=== PATIENT | male | born 1965 | race Caucasian/White ===

== ENCOUNTER 2017-08-08 13:13 | Emergency (ER) | payer MEDICAID, OTHER ==
[~2017-08-08] VITALS: Ht 170.2 cm; Wt 80.0 kg
[2017-08-08 13:25] VITALS: Ht 170.2 cm; Wt 80.0 kg
[2017-08-08] MEDS ORDERED: ONDANSETRON (ODT) 4 MG TAB ODT STA (15:56)
[2017-08-08] MEDS ORDERED: HYDROCODONE/APAP (5/325) TAB PO ONE (16:00)
--- NOTE | 2017-08-08 16:33 | RADRPT ---
PROCEDURE: US Lower extremity Venous. CLINICAL INDICATION: Right leg edema , pain TECHNIQUE: Multiple sonographic images of the right lower extremity deep venous system was obtaine d utilizing grayscale, color-flow, compressive sonography and doppler imaging with augmentation. Th e images were reviewed on a PACS workstation. COMPARISON: None. FINDINGS: There is normal compressibility and flow within the right common femoral, femoral, posterior tibial, peroneal and popliteal veins. RPTAT: AA IMPRESSION: No sonographic evidence for deep venous thrombosis. .Shad Sharma MD, MD Date Time Electronically viewed and signed by .Shad Sharma MD, on 08/08/2017 16:33 .S/
--- NOTE | 2017-08-08 17:02 | RADRPT ---
PROCEDURE: XR Ankle. CLINICAL INDICATION: 51 years of age, male. Pain and swelling. TECHNIQUE: Three views of the right ankle. COMPARISON: None available. FINDINGS: No acute fracture or dislocation is identified. Normal alignment on this non-stressed view. There is mild soft tissue swelling greatest over the lateral malleolus. Minimal vascular calcificati on. Additional comment: None. IMPRESSION: Negative for evidence of acute fracture or dislocation of the right ankle. RPTAT: HCTS Physician Korey Date Time Electronically viewed and signed by Physician Korey on 08/08/2017 17:02 /
--- NOTE | 2017-08-08 17:06 | RADRPT ---
PROCEDURE: XR Knee. CLINICAL INDICATION: 51 of age, male. Right knee pain after fall. TECHNIQUE: Three views of the right knee. COMPARISON: None available. FINDINGS: Negative for evidence of acute fracture. Normal alignment. Joint spaces are preserved without evidence of significant arthritis. Negative for evidence of a joint effusion. Negative for significant soft tissue swelling. Additional comment: None. IMPRESSION: 1. Negative for evidence of acute fracture or dislocation of the right knee. 2. Negative for evidence of significant arthritis. RPTAT: HCTS Physician Korey Date Time Electronically viewed and signed by Karissa Hong Physician on 08/08/2017 17:05 CS/
--- NOTE | 2017-08-08 17:29 | RADRPT ---
PROCEDURE: CT brain without contrast CLINICAL INDICATION: Headache, after fall onto occiput TECHNIQUE: CT of the brain without contrast was performed on a multidetector CT scanner, with multi planar reformats. One or more of the following dose reduction techniques were used: Automated expos ure control, adjustment in mA and / or kV according to patient size, use of iterative reconstructive technique. CTDIvol = 43 mGy; DLP = 720 mGy-cm. DICOM images are available. COMPARISON: None available FINDINGS: No acute intracranial hemorrhage is identified. No extra-axial fluid collection is seen. There is no mass effect. No midline shift is identified. Ventricles - sulci are mildly enlarged with volume loss. Post the density of the brain is unremarkable. Purcell-white differentiation is preserved. Small polyp/mucous retention cyst in the right sphenoid sinus and atlanto-occipital assimilation are noted. IMPRESSION: 1. No evidence of acute intracranial pathology. 2. Mild volume loss. RPTAT: VV .Kingsley Alonso MD, MD Date Time Electronically viewed and signed by .Kingsley Alonso MD, on 08/08/2017 17:28 .O/
[2017-08-08] MEDS ORDERED: NAPR-260 PO (17:36)
[2017-08-08 17:44] VITALS: BP 118/63; PULSE 74; RESP 19; TEMP 98.2
--- NOTE | 2017-08-08 17:45 | ERD ---
ER Documentation Chief Complaint Chief Complaint HAS HAD SOEM SURGERIES THAT AFFECT HIS AMBULATION HAD TWO FALLS IN [facility] (ROBBIE CORONEL PA-C) HPI This patient is a 51-year-old male presenting to the emergency department with complaints of pain in the right knee, right ankle, and the head after a fall earlier today. 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 The patient states he lost his balance and fell backwards injuring his head and right ankle and right knee. There was no loss of consciousness reported. Pain is intermittent and worse when trying to ambulate with his walker. No other symptoms or injuries reported at this time. (ROBBIE CORONEL PA-C) ROS All systems reviewed and are negative except as per history of present illness. (ROBBIE CORONEL PA-C) Medications Home Meds Active Scripts Naproxen* (Naprosyn*) 500 Mg Tablet, 500 MG PO BID Y for PAIN AND/OR INFLAMMATION, #20 TAB Prov:ROBBIE CORONEL PA-C 08/08/17 Allergies Allergies: Coded Allergies: No Known Allergy (Unverified , 08/08/17) PMhx/Soc History of Surgery: Yes (BACK/NECK) (ROBBIE CORONEL PA-C) Physical Exam Vitals Vital Signs Date Time Temp Pulse Resp B/P Pulse Ox O2 Delivery O2 Flow Rate FiO2 08/08/17 17:44 98.2 74 19 118/63 100 Room Air 08/08/17 13:25 98.5 71 18 111/60 99 (JACQUI RAI MD) Physical Exam Const: Nontoxic, well-appearing male resting in a wheelchair. Head: Mild tenderness palpation of the occiput, however no hematomas are seen. No lacerations are seen. Eyes: Normal Conjunctiva ENT: Normal External Ears, Nose and Mouth. Neck: Full range of motion..~ No meningismus. Skin: No petechiae or rashes Back: No midline or flank tenderness Ext: 1+ pitting edema noted to the right lower extremity. The patient does have some tenderness palpation of the right ankle but range of motion is intact. He does have mild tenderness palpation of the right knee but range of motion is intact. The left lower extremity is normal in appearance, however he is wearing a brace on this leg. Neur: Awake and alert Psych: Normal Mood and Affect (ROBBIE CORONEL PA-C) Results 24 hrs Current Medications Medications (Trade) Dose Ordered Sig/Saad Route PRN Reason Start Time Stop Time Status Last Admin Dose Admin Acetaminophen/ Hydrocodone Bitart ([place] (5/325)) 1 tab ONCE ONCE PO 08/08/17 16:00 08/08/17 16:01 DC 08/08/17 16:16 Ondansetron HCl (Zofran Odt) 4 mg ONCE STAT ODT 08/08/17 15:56 08/08/17 15:58 DC 08/08/17 16:16 (JACQUI RAI MD) Procedures/MDM Patient is a 51-year-old male presented to the emergency department with right ankle, right knee pain and headache after fall earlier today. Physical examination does show some edema of the right lower extremity with some ankle and knee tenderness palpation. Range of motion is intact in all joints. The patient is neurologically intact. X-ray showed no acute findings. CT head without contrast showed no acute findings. Venous Doppler of the right lower extremity was ordered to rule out DVT and the study was unremarkable. Patient was stable for discharge in the care of his son. No evidence of life- threatening pathology at time of discharge. Pt/family in agreement with discharge plan/diagnosis. Pt/family advised to return immediately with any new or worsening symptoms. Follow-up with primary care physician within the next 1- 2 days. PROCEDURE: XR Ankle. CLINICAL INDICATION: 51 years of age, male. Pain and swelling. TECHNIQUE: Three views of the right ankle. COMPARISON: None available. FINDINGS: No acute fracture or dislocation is identified. Normal alignment on this non-stressed view. There is mild soft tissue swelling greatest over the lateral malleolus. Minimal vascular calcification. Additional comment: None. IMPRESSION: Negative for evidence of acute fracture or dislocation of the right ankle. RPTAT: HCTS Physician Korey Date Time Electronically viewed and signed by Karissa Hong Physician on 08/08/2017 17: 02 PROCEDURE: CT brain without contrast CLINICAL INDICATION: Headache, after fall onto occiput TECHNIQUE: CT of the brain without contrast was performed on a multidetector CT scanner, with multiplanar reformats. One or more of the following dose reduction techniques were used: Automated exposure control, adjustment in mA and / or kV according to patient size, use of iterative reconstructive technique. CTDIvol = 43 mGy; DLP = 720 mGy-cm. DICOM images are available. COMPARISON: None available FINDINGS: No acute intracranial hemorrhage is identified. No extra-axial fluid collection is seen. There is no mass effect. No midline shift is identified. Ventricles - sulci are mildly enlarged with volume loss. Post the density of the brain is unremarkable. Purcell-white differentiation is preserved. Small polyp/mucous retention cyst in the right sphenoid sinus and atlanto- occipital assimilation are noted. IMPRESSION: 1. No evidence of acute intracranial pathology. 2. Mild volume loss. RPTAT: VV .Kingsley Alonso MD, MD Date Time Electronically viewed and signed by .Kingsley Alonso MD, on 08/08/2017 17:28 PROCEDURE: US Lower extremity Venous. CLINICAL INDICATION: Right leg edema , pain TECHNIQUE: Multiple sonographic images of the right lower extremity deep venous system was obtained utilizing grayscale, color-flow, compressive sonography and doppler imaging with augmentation. The images were reviewed on a PACS workstation. COMPARISON: None. FINDINGS: There is normal compressibility and flow within the right common femoral, femoral, posterior tibial, peroneal and popliteal veins. RPTAT: AA IMPRESSION: No sonographic evidence for deep venous thrombosis. .Shad Sharma MD, Date Time Electronically viewed and signed by .Shad Sharma MD, MD on 08/08/2017 16: 33 PROCEDURE: XR Knee. CLINICAL INDICATION: 51 of age, male. Right knee pain after fall. TECHNIQUE: Three views of the right knee. COMPARISON: None available. FINDINGS: Negative for evidence of acute fracture. Normal alignment. Joint spaces are preserved without evidence of significant arthritis. Negative for evidence of a joint effusion. Negative for significant soft tissue swelling. Additional comment: None. IMPRESSION: 1. Negative for evidence of acute fracture or dislocation of the right knee. 2. Negative for evidence of significant arthritis. RPTAT: HCTS Physician Korey Date Time Electronically viewed and signed by Karissa Hong Physician on 08/08/2017 17: 05 (ROBBIE CORONEL PA-C) Attending addendum: I was available for consult, but was not consulted to see this patient. Care was provided exclusively by the mid-level provider. (JACQUI RAI MD) Departure Diagnosis: Primary Impression: Fall with no significant injury Encounter type: initial encounter Qualified Code: W19.XXXA - Fall with no significant injury, initial encounter Condition: Fair Patient Instructions: Fall, Uncertain Cause, Fall Prevention [facility]: [facility] Usted se lawton hecho un examen mdico de control que le indica que no est en jewel condicin que requiera tratamiento urgente en el Departamento de Emergencia. Un estudio ms profundo y el tratamiento de graves condicin pueden esperar sin ningn riesgo hasta que usted sea atendida/o en el consultorio de graves mdico o jewel cl trudy. Es responsabilidad suya arreglar jewel steve para el seguimiento del nicholas. MANEJO DE CONDICIONES NO URGENTES EN EL FUTURO 1) Si usted tiene un mdico de atencin primaria: Usted debera llamar a graves mdico de atencin primaria antes de venir al departamento de emergencia. Despus de las horas de consultorio, graves doctor o graves asociado/a est disponible por telfono. El mdico o enfermero de sreekanth en el servicio telefnico puede asesorarle por sheryl medio para atender el problema, o nicholas contrario se puede programar jewel steve. 2) Si usted no tiene un mdico de atencin primaria: Llame al mdico o clnica de referencia que aparece abajo isabelle las horas de consultorio para hacer jewel steve para que le vean. CLINICAS: [place] [id number] [phone] [facility] [phone] [facility] [phone] [place] [id number] [phone] [facility] [place] [phone] [facility] [phone] [address] Additional Instructions: Llame al doctor MAANA y alejandro jewel STEVE PARA DENTRO DE 1-2 WELLS.Dgale a la secretaria que nosotros le instruimos hacer esta steve.Avise o llame si graves condicin se empeora antes de la steve. Regresa aqui si peor o no mejor. ROBBIE CORONEL PA-C Aug 08, 2017 17:45 JACQUI RAI MD Aug 08, 2017 20:32
== END 2017-08-08 18:25 | disposition home or self-care (01) ==
LOC: FTE 13:13
DX: M25.561 Pain in right knee (principal); M25.571 Pain in right ankle and joints of right foot; R51 Headache
CPT/HCPCS: 70450; 73562; 73610; 93971; Z7502; Z7610